=== PATIENT | male | born 1995 | race African-American/Black ===

== ENCOUNTER 2017-01-21 22:58 | Inpatient (IN) | payer OTHER, SELFPAY ==
[~2017-01-21 22:58] MED LIST: ISOVUE-370 76%-LOCM 1 ML ONE
[2017-01-21] MEDS ORDERED: Rocuronium Bromide 50 MG/5 ML VIAL ONE (23:18)
[2017-01-21] MEDS ORDERED: Fentanyl 20 MCG/ML 250 ML ONE (23:38)
--- NOTE | 2017-01-21 23:52 | RAD ---
PORTABLE CHEST: 01/21/17 HISTORY: Post intubation. Lungs are clear. ET tube is in place with tip at the yaakov. An NG tube is in place with tip not visu alized. The heart and mediastinum are unremarkable. IMPRESSION: No acute finding. POS: [facility]
--- NOTE | 2017-01-21 23:53 | RAD ---
PORTABLE CHEST: 01/21/17 HISTORY: ET tube adjustment. FINDINGS/IMPRESSION: ET tube has been retracted. Tip is above yaakov. Lungs remain clear. No acute lung abnormality identi fied. POS: [facility]
[2017-01-22 00:40] LABS: Acetaminophen Less than 6.0 mcg/mL (10.0-30.0); Salicylate Less than 8.0 mg/dL (15.0-30.0)
[2017-01-22 00:41] LABS: ALT (SGPT) 19 U/L (8-55); AST (SGOT) 35 U/L (5-34); Alkaline Phosphatase 64 U/L (40-150); Anion Gap 21 mmol/L (10-20); BUN (Urea Nitrogen) 10 mg/dL (8.9-20.6); Bilirubin, Total 0.4 mg/dL (0.2-1.2); CK (CPK) 619 U/L (30-200); Calc. Creatinine Clearance 0 mL/min (70-130); Calcium 9.9 mg/dL (7.8-10.44); Carbon Dioxide 19 mmol/L (22-29); Chloride 106 mmol/L (98-107); Estimated GFR-MDRD Greater than 90; Globulin 4.2 g/dL (2.4-3.5); Protein, Total 8.8 g/dL (6.0-8.3)
[2017-01-22 00:46] LABS: #Neutrophils 9.2 thou/uL (1.40-6.50); %Eosinophils 0.2 % (0.0-10.0); %Lymphocytes 22.7 % (21.0-51.0); %Monocytes 7.2 % (0.0-10.0); Band 1 % (5-11); Hematocrit 46.1 % (42.0-52.0); Mean Platelet Volume 9.6 fL (7.4-10.4); Neutrophil 72 % (42-75); White Blood Cell (WBC) Count 13.1 thou/uL (4.8-10.8)
[2017-01-22 01:04] LABS: Bilirubin Negative (Negative); Blood, Urine Small (Negative); Glucose, Urine (Dipstick) Negative (Negative); Ketone, Urine Negative (Negative); Nitrite Negative (Negative); Protein, Urine (Dipstick) Trace mg/dL (Neg-Trace); Urobilinogen 0.2 mg/dL (0.2-1.0)
[2017-01-22 01:07] LABS: Bacteria/HPF None Seen HPF (None Seen); Hyaline Casts/LPF 0-3 HYALINE CAST LPF (0-3 Hyaline); Squamous Epithelial 0-3 HPF (0-3); WBC/HPF 0-3 HPF (0-3)
[2017-01-22 01:12] LABS: Amphetamine Not Detected (NotDetected); Methadone Not Detected (NotDetected); Methamphetamine Detected (NotDetected)
[2017-01-22 01:23] LABS: Oxyhemoglobin 93.9 % (94.0-97.0); Sodium 145 mmol/L (135-148)
[2017-01-22 01:24] LABS: Mechanical Tidal Volume 500 ml; Modified Allen's Test POSITIVE; Vent YES
[2017-01-22 01:25] LABS: Mode SIMV; Pressure Support 10 cmH2O
[2017-01-22 02:06] LABS: Troponin I Less than 0.010 ng/mL (< 0.028)
[2017-01-22] MEDS ORDERED: Propofol 1,000 MG/100 ML VIAL IV ONE (02:43)
[2017-01-22] MEDS ORDERED: hydrALAZINE 20 MG/ML VIAL SLOW IVP PRN (03:00)
[2017-01-22] MEDS ORDERED: Ondansetron HCl/PF 4 MG/2 ML Vial IVP PRN ×2 (03:00→03:03)
[2017-01-22] MEDS ORDERED: Dextrose 5% in Water 1,000 ML IV PRN (03:00)
[2017-01-22] MEDS ORDERED: Sodium Chloride 0.9% 1,000 ML IV SCH ×2 (03:00→03:03)
[2017-01-22] MEDS ORDERED: Dextrose 50% Abboject 50 ML SYRINGE SLOW IVP PRN (03:00)
[2017-01-22] MEDS ORDERED: Sedation Protocol FS ONE (03:00)
[2017-01-22] MEDS ORDERED: Ondansetron ODT 4 MG TAB PO PRN (03:00)
[2017-01-22] MEDS ORDERED: Fentanyl 20 MCG/ML 250 ML IVPB SCH ×2 (03:03→03:08)
[2017-01-22] MEDS ORDERED: Ondansetron ODT 4 MG TAB SL PRN (03:03)
[2017-01-22] MEDS ORDERED: Lorazepam 2 MG/ML VIAL SLOW IVP PRN (03:08)
[2017-01-22] MEDS ORDERED: Propofol 1,000 MG/100 ML VIAL IV PRN (03:08)
[2017-01-22] MEDS ORDERED: Morphine 4 MG/ML VIAL SLOW IVP PRN (03:09)
[2017-01-22 03:26] VITALS: BMI 19.4
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
[2017-01-22] MEDS ORDERED: FLU VACC QS2017-18 36 mo. & older 0.5 ML SYRINGE IM ONE (09:00)
--- NOTE | 2017-01-22 09:22 | RAD ---
PORTABLE AP CHEST RADIOGRAPH: Date: 01-22-17 History: Intubated. Pulmonary contusion. Comparison: 01-21-17 FINDINGS: The lung apices are excluded from view on this exam. Endotracheal tube is not visualized on this exam . I am not sure if the endotracheal tube has been removed or was not imaged. Nasogastric tube remains in place again coursing to the left upper quadrant. There is parenchymal opacity seen within the rig ht upper lung zone which may be related to contusion. Findings could be related to aspiration pneumon itis. Left lung is clear. Again, lung apex is excluded from view. While no pneumothorax is visualized , an apical pneumothorax cannot be excluded based on this exam. Osseous structures appear intact. IMPRESSION: 1. Exclusion of the lung apices. 2. Parenchymal opacity in the right upper lobe which may represent either volume loss related to part ial collapse of the right upper lobe or aspiration pneumonitis. Findings could be secondary to pneumo betty; although based on clinical history, this is thought less likely. 3. Endotracheal tube is not identified and may not be imaged due to exclusion of the upper lobes. POS: [facility]
[2017-01-22] MEDS ORDERED: traMADol HCl 50 MG TAB PO PRN (09:26)
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
[2017-01-22] MEDS: Acetaminophen 500 MG TAB PO SCH ×3 (10:26→21:03)
[2017-01-22] MEDS: Ibuprofen 800 MG TAB PO SCH ×2 (10:26→18:04)
[2017-01-22] MEDS: Oxazepam 10 MG CAP PO SCH ×2 (10:26→18:03)
[2017-01-22] MEDS ORDERED: Piperacillin/Tazobactam 4.5 GM in Sodium Chloride 0.9% 100 ML IVPB SCH (14:00)
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
[2017-01-22] MEDS: traMADol HCl 50 MG TAB PO PRN (21:02)
[2017-01-22] MEDS: Amoxicillin/Potassium Clav 875 MG TAB PO SCH (21:03)
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
[2017-01-23] MEDS: Oxazepam 10 MG CAP PO SCH ×2 (02:27→08:53)
[2017-01-23] MEDS: Ibuprofen 800 MG TAB PO SCH ×2 (02:27→08:52)
[2017-01-23] MEDS: Acetaminophen 500 MG TAB PO SCH ×2 (03:58→08:52)
[2017-01-23 05:35] LABS: #Eosinphils 0.1 thou/uL (0.0-0.7); #Lymphocytes 2.8 thou/uL (1.20-3.40); #Monocytes 1.2 thou/uL (0.11-0.59); #Neutrophils 6.6 thou/uL (1.40-6.50); %Basophils 0.4 % (0.0-1.0); %Eosinophils 0.5 % (0.0-10.0); %Monocytes 11.3 % (0.0-10.0); Hematocrit 41.1 % (42.0-52.0); Red Blood Cell (RBC) Count 4.34 mill/uL (4.70-6.10); White Blood Cell (WBC) Count 10.6 thou/uL (4.8-10.8)
[2017-01-23 06:01] LABS: Anion Gap 10 mmol/L (10-20); BUN (Urea Nitrogen) 13 mg/dL (8.9-20.6); Calc. Creatinine Clearance 103 mL/min (70-130); Calcium 9.3 mg/dL (7.8-10.44); Carbon Dioxide 28 mmol/L (22-29); Chloride 103 mmol/L (98-107); Estimated GFR-MDRD Greater than 90; Magnesium 1.6 mg/dL (1.6-2.6); Phosphorus 3.6 mg/dL (2.3-4.7)
[2017-01-23] MEDS: Amoxicillin/Potassium Clav 875 MG TAB PO SCH (08:52)
[2017-01-23] MEDS: traMADol HCl 50 MG TAB PO PRN (08:57)
[2017-01-23] MEDS ORDERED: Folic Acid 1 MG TAB PO SCH (09:00)
[2017-01-23 13:08] VITALS: BP 126/83; TEMP 98.2
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
== END 2017-01-23 14:52 | disposition home or self-care (01) | DRG 208 ==
LOC: ERS 22:58 → CCU 01-22 02:26 → SURG A 01-22 11:34
PROVIDERS: ADMIT Surgery; ATTEND Surgery
PROC: 0BH17EZ Insertion of Endotracheal Airway into Trachea, Via Natural or Artificial Opening (ICD-10-PCS; principal; 2017-01-22)
PROC: 5A1935Z Respiratory Ventilation, Less than 24 Consecutive Hours (ICD-10-PCS; 2017-01-22)
DX: J96.01 Acute respiratory failure with hypoxia (principal); G93.41 Metabolic encephalopathy; J18.9 Pneumonia, unspecified organism; S27.322A Contusion of lung, bilateral, initial encounter; S82.401A Unspecified fracture of shaft of right fibula, initial encounter for closed fracture; V03.90XA Pedestrian on foot injured in collision with car, pick-up truck or van, unspecified whether traffic or nontraffic accident, initial encounter; F15.129 Other stimulant abuse with intoxication, unspecified; F12.129 Cannabis abuse with intoxication, unspecified
CPT/HCPCS: 31500; 36415; 51702; 70450; 71010; 71260; 72125; 74177; 80048; 80053; 80306; 80307; 81003; 81015; 82550; 82553; 82805; 83735; 84100; 84484; 85025; 93005; 94002; 96365; 96366; 99292; G0390; G8978-GP-CJ; G8979-GP-CJ; G8980-GP-CJ; J2060; J2543; J2704; J3010; J7050